=== PATIENT | male | born 1955 | race Caucasian/White ===

== ENCOUNTER → 2021-03-09 14:51 | Outpatient (CLI) | payer MEDICARE, BC, SELFPAY ==
--- NOTE | ~2021-03-09 | XR_ITS ---
XR chest 2V 03/09/2021 15:03 Indication: Cough. No fever. Procedure: 2 view chest Comparison: 10/06/2018 Findings: Bilateral perihilar interstitial infiltrates. Subsegmental atelectasis left midlung. No ple ural effusion or pneumothorax. No acute osseous abnormality. Impression: 1: Subtle bilateral perihilar interstitial infiltrates, suspicious for pneumonia. Reviewed, dictated and finalized at location B. Impression: 1: Subtle bilateral perihilar interstitial infiltrates, suspicious for pneumoni a.
== END ==
PROVIDERS: PCP Family Medicine; Visit Provider Nurse Practitioner Family
DX: R05 Cough (principal); R91.8 Other nonspecific abnormal finding of lung field
CPT/HCPCS: 71046

== ENCOUNTER → 2021-03-29 13:04 | Outpatient (CLI) | payer MEDICARE, BC, SELFPAY ==
--- NOTE | ~2021-03-29 | XR_ITS ---
EXAMINATION: XR chest 2V DATE: 03/29/2021 13:32 INDICATION: Pneumonia, unspecified organism. TECHNIQUE: Frontal and lateral views of the chest were obtained. COMPARISON: Chest 2 views 03/09/2021 FINDINGS: The chest demonstrates clear lungs without pneumonia, pleural effusion, or pneumothorax. Th e heart size is normal. IMPRESSION: 1. No acute cardiopulmonary disease. Reviewed, dictated and finalized at location A.
== END ==
PROVIDERS: PCP Family Medicine; Visit Provider Nurse Practitioner Family
DX: J18.9 Pneumonia, unspecified organism (principal)
CPT/HCPCS: 71046

== ENCOUNTER 2023-01-29 14:02 | Outpatient (CLI) | payer MEDICARE, SELFPAY ==
--- NOTE | 2023-01-29 15:17 | ECG_ITS ---
Measurements Intervals [place] Rate: 64 P: -5 SD: 165 QRS: -9 QRSD: 74 T: -12 QT: 386 QTc: 400 Interpretive Statements SINUS RHYTHM DELAYED PRECORDIAL R/S TRANSITION LEFT VENTRICULAR HYPERTROPHY BORDERLINE T WAVE ABNORMALITY- INFERIOR LEADS BORDERLINE ECG NO PREVIOUS ECG AVAILABLE FOR COMPARISON Electronically Signed On 01-29-2023 16:31:12 CDT by Neftaly Christy D.O.
[2023-01-29 15:49] LABS: Basophils Percent Auto 0.7 % (0.2-1.2); Eosinophils Absolute Auto 0.1 K/mm3 (0-0.3); Eosinophils Percent Auto 1.8 % (0-4.4); Hematocrit 41.2 % (42.0-52.0); Hemoglobin 14.2 g/dL (14.0-18.0); Immature Granulocyte Absolute 0.01 K/mm3 (0.00-0.031); Immature Granulocyte Percent A 0.2 % (0-0.5); Lymphocytes Absolute Auto 1.28 K/mm3 (0.9-3.2); Lymphocytes Percent Auto 28.8 % (18.3-44.2); Mean Corpuscular HGB Conc 34.5 g/dl (32-36); Mean Corpuscular Hemoglobin 30.5 pg (26-34); Mean Corpuscular Volume 88.6 fl (80-100); Mean Platelet Volume 9.9 fl (7.4-10.4); Monocytes Absolute Auto 0.5 K/mm3 (0.1-0.6); Monocytes Percent Auto 11.7 % (2.6-8.5); Neutrophils Absolute Auto 2.5 K/mm3 (1.3-6.7); Neutrophils Percent Auto 56.8 % (45.5-73.1); Platelet Count Result 205 k/mm3 (150-375); Red Blood Count 4.65 M/mm3 (4.6-6.20); Red Cell Distribution Width 13.4 % (11.5-14.5); White Blood Count 4.5 K/mm3 (4.5-10.0)
[2023-01-29 15:55] LABS: Albumin Level 4.7 g/dL (3.5-5.1); Anion Gap 6 mmol/L (8-16); Blood Urea Nitrogen 19 mg/dL (9-20); Calcium 9.1 mg/dL (8.4-10.2); Carbon Dioxide 29 mmol/L (22-30); Chloride 104 mmol/L (98-107); Estimated Glomerular Filt Rate > 60; Glucose 94 mg/dL (65-110); Potassium 4.6 mmol/L (3.4-5.0); Sodium 139 mmol/L (137-145)
[2023-01-29 16:19] LABS: Urine Cotinine NEGATIVE
[2023-01-29 16:30] LABS: Hemoglobin A1C 5.4 % (<5.7)
== END 2023-01-29 14:03 | disposition home or self-care (01) ==
LOC: ANHSURGERY 14:11
PROVIDERS: PCP Family Medicine; Visit Provider Orthopaedic Surgery
DX: Z01.818 Encounter for other preprocedural examination (principal); M17.11 Unilateral primary osteoarthritis, right knee
CPT/HCPCS: 80048; 80307; 82040; 83036; 85025; 87081; 93005

== ENCOUNTER 2023-02-27 00:43 | Day surgery (SDC) | payer MEDICARE, SELFPAY ==
[2023-01-29 14:30] VITALS: BP 146/86; PULSE 78; RESP 16; TEMP 36.6; O2SAT 96; BMI 28.3
--- NOTE | 2023-01-29 14:49 | PC.NURSE ---
Report to the Outpatient Waiting Room, entrance under the green pavilion located off [facility], at time _10:00AM on date __02/27/23 . Planned Procedure Time: __12:00PM . Time changes happen often and if your time is changed the preop area will call you the afternoon before. - You and your visitor will be asked to self-screen and do not enter if you have any COVID symptoms. - Only one visitor is requested with a max of two and NO children visitors are allowed at this time. - The patient visitor may be requested to leave or wait in car when not with patient due to distancing restrictions. - A mask is optional within the hospital at this time. Patients may have clear liquids (water, carbonated beverages, clear teas, apple juice) until 3 hours prior to surgery with a maximum of 20 ounces. - No food from midnight until time of surgery Take the following medications with a SIP of water the morning of surgery: ____NONE DO NOT STOP ANY OF YOUR OTHER PRESCRIPTION MEDICATIONS PRIOR TO SURGERY ?EXCEPT THE FOLLOWING Medications to discontinue per physician HOLD ALL VITAMINS/SUPPLEMENTS AND NSAIDS(IBUPROFEN) 7 DAYS PRE-OP PER DR JHAVERI(PER PATIENT) Date to take last dose____02/20/23 Please no make-up, nail south african, hairspray, perfume, deodorant, or body powder the day of surgery. No jewelry (including any body piercings) or valuables the day of surgery, leave them at home. Please take a shower or bath the night before, or the morning of, surgery with an antibacterial soap. Wear comfortable, loose fitting clothing. Children are encouraged to wear pajamas. - Jewelry must be removed prior to entering the operating room. Rings and piercings that are not removed may be cut off. - The hospital will not accept responsibility for valuables. - Please leave all valuables, including medications, at home the day of surgery. If you are going home after surgery, a licensed fast food delivery driver must drive you home. - NO public transportation without another adult if you receive anesthesia. - We recommend that an adult stay with you for 24 hours following discharge. - We also recommend that you do not drive, make important decision, drink alcoholic beverages, or take any drugs that were not prescribed by your health care provider for at least 24 hours after your discharge time. Follow any additional instructions given to you from your surgeon. If you or anyone in your household have experienced Covid symptoms in the past week, please notify your surgeon or the nurse liaison at the phone number below for possible testing. Telephone instructions given to __PATIENT and asked if any additional questions and then verbalized understanding. Patient advised to call surgeon office or pre surgery nurse liaison [phone] if any additional questions.
--- NOTE | 2023-02-25 11:55 | PM.IMHP ---
H&P: HPI History of Present Illness Date/Time: 02/25/23 11:55 Chief Complaint: right knee DJD Narrative: 67-year-old male patient of Dr. Bowman who presents today for a right total knee arthroplasty. Patient has been having pain in this knee for years. He has advanced medial compartment osteoarthritis with a rather significant varus deformity and limited range of motion. He has been taking ibuprofen without improvement of his symptoms. He had a cortisone injection in October of last year without improvement of his symptoms. Patient feels at this point he is ready to proceed with total knee arthroplasty rather continue nonsurgical treatment Review of Systems Review of Systems: All systems reviewed & are unremarkable except as noted in HPI and below PMFSH Past Medical History Medical History BMI 26.0-26.9,adult Family History Family History Father No problems noted. Mother Breast cancer UTI (urinary tract infection) Sibling No problems noted. 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 Spiritual care concerns: No Meds Home Medications and Allergies Home Medications Medication Instructions Recorded Confirmed Type finasteride 5 mg tablet (Proscar) 5 mg PO HS 01/29/23 01/29/23 History ginkgo biloba 120 mg tablet 120 mg PO DAILY 01/29/23 01/29/23 History ibuprofen 200 mg capsule 600 - 800 mg PO Q6H PRN Pain 01/29/23 01/29/23 History lecithin 1,200 mg capsule 1,200 mg PO DAILY 01/29/23 01/29/23 History multivitamin 1 tablet PO DAILY 01/29/23 01/29/23 History saw palmetto 450 mg capsule 900 mg PO DAILY 01/29/23 01/29/23 History triamcinolone acetonide 0.5 % 1 applic topical BID PRN Rash 01/29/23 01/29/23 History topical cream vitamin D3 25 mcg-vitamin K2 20 2 cap PO DAILY 01/29/23 01/29/23 History mcg-olive leaf extract 250 mg capsule Allergies Allergy/AdvReac Type Severity Reaction Status Date / Time ciprofloxacin AdvReac Unknown anger Verified 02/11/23 08:35 Exam Narrative: 67-year-old male he is 5 ft 8 186 lb. His right knee range of motion is from 10-85 degrees. He has a prominent supra patellar mass which is a collection of ossified loose bodies. Mild effusion in the knee. Fixed varus deformity. Full range motion of the hip without discomfort. Normal quad strength. 2+ dorsalis pedis and posterior artery pulse palpable. Skin is all normal. There is no edema or numbness in the right lower extremity. Resp: Auscultation: clear to auscultation bilaterally Cardio: Rate: regular rate Rhythm: regular rhythm Assessment and Plan Assessment and plan (1) Right knee DJD: Code(s): M17.11 - Unilateral primary osteoarthritis, right knee Status: Acute Plan 67-year-old male who has advanced medial compartment osteoarthritis in the right knee with significant decreased range of motion and pain. Again patient feels this point is very proceed with total knee arthroplasty. He will see his primary care doctor for pre-surgical clearance. Surgical procedure as well as the risks and complications were discussed in detail questions were answered and we will proceed. Patient will avoid his ibuprofen and any other aspirin products 1 week prior to surgery. His nasal swab was negative. Chem panel is all within normal
[2023-02-27] VITALS (11 sets, daily range): BP systolic 134–152; BP diastolic 85–99; PULSE 76–101; RESP 12–20; TEMP 36.2–37; O2SAT 96–98
--- NOTE | ~2023-02-27 | XR_ITS ---
EXAMINATION: [id number] DATE: 02/27/2023 16:10 CDT INDICATION: Right total knee arthroplasty TECHNIQUE: 2 views right knee FINDINGS: There is a right total knee arthroplasty in expected position. Subcutaneous gas with fluid and air in the joint are consistent with recent surgery. No evidence of periprosthetic fracture. IMPRESSION: 1. Recent right total knee arthroplasty. Reviewed, dictated and finalized at location A.
--- NOTE | 2023-02-27 09:04 | WPDANESEPPF ---
Anes - Initial Pre Proc Eval Procedure: Operation Date: 02/27/23 12:00 Proposed Procedures p Right Total Knee Arthroplasty - Gigi Harden MD Date/Time: 02/27/23 09:04 Surgeon: Gigi Harden MD Pre Op Diagnosis: oa right knee Patient Data Age: 67 Gender: M Height: 1.75 m Weight: 86.9 kg Last Vital Signs Temp 36.6 C 01/29/23 14:30 Pulse 78 01/29/23 14:30 Resp 16 01/29/23 14:30 BP 146/86 H 01/29/23 14:30 Pulse Ox 96 01/29/23 14:30 O2 Del Method Room Air 01/29/23 14:30 Allergies Allergy/AdvReac Type Severity Reaction Status Date / Time ciprofloxacin AdvReac Unknown anger Verified 02/27/23 11:02 Home Medications Medication Instructions Recorded Confirmed Type lecithin 1,200 mg capsule 1,200 mg PO DAILY 01/29/23 02/27/23 History multivitamin 1 tablet PO DAILY 01/29/23 02/27/23 History acetaminophen 500 mg tablet 1,000 mg PO Q6HR #90 tabs 02/28/23 Rx apixaban 2.5 mg tablet (Eliquis) 2.5 mg PO Q12HR #28 tabs 02/28/23 Rx celecoxib 200 mg capsule (Celebrex) 200 mg PO DAILY@0800 #60 caps 02/28/23 Rx cephalexin 500 mg capsule 500 mg PO Q6HR #56 caps 02/28/23 Rx oxycodone 5 mg tablet 5 mg PO Q4HR #40 tabs 02/28/23 Rx polyethylene glycol 3350 17 gram 17 g PO QAM #30 ea 02/28/23 Rx oral powder packet (Miralax) sennosides 8.6 mg-docusate sodium 2 tab PO BID #60 tabs 02/28/23 Rx 50 mg tablet (Senokot-S) finasteride 5 mg tablet (Proscar) 5 mg PO HS #90 tabs 03/07/23 Rx Patient hx anesthesia problems: none Family hx anesthesia problems: none Results Review: All pre-operative results and documents have been reviewed as part of the pre-operative evaluation. [facility] Past Medical History Medical History (Updated 02/27/23 @ 23:21 by Farnaz Adam PA-C) Benign prostatic hyperplasia Hypothyroidism Has not required medications since he was a child. Mixed hyperlipidemia Numbers elevated though not enough to start medication, per patient report. Surgical History Surgical History (Updated 02/27/23 @ 22:44 by Farnaz Adam PA-C) History of arthroplasty of right knee (02/27/23) Per Dr. Harden. History of tonsillectomy Family History Family History Father No problems noted. Mother Breast cancer UTI (urinary tract infection) Sibling No problems noted. Social History Social History (Updated 02/27/23 @ 23:21 by Farnaz Adam PA-C) Social History: Surrogate medical decision maker: Serena Malachi, spouse. Code status: Full code. Smoking packs per day: 0.5 Smoking cigarettes per day: 10.0 Years smoked: 1 Smoking pack-years: 0.50 Smoking status: Former smoker Tobacco type: cigarettes Second hand tobacco smoke exposure: Yes Smoking end date: 05/11/77 Alcohol intake: current Drinks per week: 3 Substance use: never Substance use type: does not use Lack of Transportation: No Lack of Food: Never True Current Housing: I Have Housing Concerned About Future Housing: No Difficulty Paying Gas/Electric Bills: No Difficulty Paying for Meds: No Currently Unemployed: No Education: Decline to Answer Difficulty w/ Childcare or Family Care: No Living arrangements: with family Additional living arrangements comments: Lives with spouse in [place]. Enjoys playing hockey. 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 Spiritual care concerns: No Anes - Eval Final PreProcedure Day of Procedure 02/27/23 09:04 Patient weight: overweight Heart: regular rate and rhythm Lungs: clear to auscultation Airway: Mallampati scale class II Neurological: alert and oriented Last oral intake: >/= 8 hours ASA classification: II Emergent: no Anesthetic plan: proceed Anesthesia type and monitoring: general ETT and standard monitoring Results Review: All pre-operative results and documents have been review
[2023-02-27] MEDS: LACTATED RINGERS 1,000 ML 30 ML IV CONT (11:05)
[2023-02-27] MEDS: TRANEXAMIC ACID 1,000MG/ISO100 1,000 MG/100 ML BAG 200 MG IVPB (11:08)
[2023-02-27] MEDS: ACETAMINOPHEN 500 MG TABLET 1000 MG PO ×3 (11:08→23:03)
--- NOTE | 2023-02-27 11:48 | WPDANESEPPF ---
Anes - Initial Pre Proc Eval Procedure: Operation Date: 02/27/23 12:00 Proposed Procedures p Right Total Knee Arthroplasty - Gigi Harden MD Date/Time: 02/27/23 11:48 Surgeon: Gigi Harden MD Pre Op Diagnosis: oa right knee Patient Data Age: 67 Gender: M Height: 1.75 m Weight: 81.8 kg Last Vital Signs Temp 98.0 F 02/27/23 10:09 Pulse 76 02/27/23 10:09 Resp 18 02/27/23 10:09 BP 134/92 H 02/27/23 10:09 Pulse Ox 98 02/27/23 10:09 O2 Del Method Room Air 02/27/23 10:09 Allergies Allergy/AdvReac Type Severity Reaction Status Date / Time ciprofloxacin AdvReac Unknown anger Verified 02/27/23 11:02 Home Medications Medication Instructions Recorded Confirmed Type finasteride 5 mg tablet (Proscar) 5 mg PO HS 01/29/23 02/27/23 History ginkgo biloba 120 mg tablet 120 mg PO DAILY 01/29/23 02/27/23 History ibuprofen 200 mg capsule 600 - 800 mg PO Q6H PRN Pain 01/29/23 02/27/23 History lecithin 1,200 mg capsule 1,200 mg PO DAILY 01/29/23 02/27/23 History multivitamin 1 tablet PO DAILY 01/29/23 02/27/23 History saw palmetto 450 mg capsule 900 mg PO DAILY 01/29/23 02/27/23 History triamcinolone acetonide 0.5 % 1 applic topical BID PRN Rash 01/29/23 01/29/23 History topical cream vitamin D3 25 mcg-vitamin K2 20 2 cap PO DAILY 01/29/23 02/27/23 History mcg-olive leaf extract 250 mg capsule Patient hx anesthesia problems: none Family hx anesthesia problems: none Results Review: All pre-operative results and documents have been reviewed as part of the pre-operative evaluation. [facility] Past Medical History Medical History (Updated 02/27/23 @ 09:05 by Trino Escudero DO) Benign prostatic hyperplasia without lower urinary tract symptoms Mixed hyperlipidemia Family History Family History Father No problems noted. Mother Breast cancer UTI (urinary tract infection) Sibling No problems noted. 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 Informed Consent: The patient's anesthetic plan and its attendant risks and benefits were discussed with the patient/family/POA. Questions were solicited and answers provided to the satisfaction of the patient/family/POA.
--- NOTE | 2023-02-27 11:51 | WPDHPUPDATE1 ---
History and Physical Update Update Date/Time: 02/27/23 11:51 History and Physical has been reviewed, including an updated exam of the patient. There are NO changes in the patient's condition. Risks, benefits, and alternatives have been discussed and questions answered. Patient agrees to proceed with procedure.
[2023-02-27] MEDS: ceFAZolin 2 GM/D5W 50 ML 2 GM/50 ML BAG IVPB (12:03)
[2023-02-27] MEDS: ceFAZolin SODIUM 1 GM VIAL 3 GM (12:59)
[2023-02-27] MEDS: TRANEXAMIC ACID 1,000 MG/10 ML AMPUL 1000 MG IV PUSH (14:37)
[2023-02-27] MEDS: ceFAZolin SODIUM 1 GM VIAL IV PUSH (14:37)
[2023-02-27] MEDS: KETOROLAC 15 MG/ML VIAL (*BKC) IV PUSH ×2 (14:37→20:51)
--- NOTE | 2023-02-27 15:35 | W.PM.PROC2 ---
Procedure Note - Detailed Date of Procedure 02/27/23 Pre-op Diagnosis oa right knee and left knee Post-op Diagnosis Same Procedure Performed Cortisone injection left knee, right total knee arthroplasty Surgeon Gigi Harden MD [employer] Feliz Farrell Anesthesia General Description of Procedure Patient was brought to the operating room and general anesthesia was administered. He received 2 g Ancef 1 g tranexamic acid weight based vancomycin preoperatively. The left knee was prepped with Betadine and 80 mg of Depo-Medrol 3 cc 1% lidocaine injected into the left knee without difficulty. The right knee was prepped draped usual fashion. Limb was exsanguinated tourniquet elevated to 250 mmHg. A 7 in longitudinal midline incision was used and a standard parapatellar arthrotomy utilized. The soon as we entered the knee we identified and removed 19 rather large ostial chondral loose bodies. We carefully search the gutters and the suprapatellar pouch for any additional loose bodies to live was confident we had removed a mole. Suprapatellar synovectomy was performed. This mobilized the quadriceps which was somewhat scarred down. Infrapatellar and suprapatellar fat pads were excised a quadriceps synovectomy carried out. The patella had mild chondromalacia and after removal of osteophytes I felt it was very suitable for non resurfacing. A is minor lateral facetectomy was performed. The guide kathy was inserted on the femoral canal after aspiration of canal contents using the 5 degree valgus cutting bushing 9 mm of bone removed the distal femur. This removed 9 mm from lateral side but only about 7 mm from the medial side because of wear. Next the tibial plateau was cut. We tried to make a skim cut off the low point of the medial tibial plateau on the 1st cut we did not quite reach the bottom of the posteromedial tibial defect. We removed an additional 2 mm of bone the cut just under the defect. Bone quality was excellent. Meniscus remnants were removed and PCL recessed. Flexion gap medially was 10 mm in laterally 14 mm. The sizing guide was set at 5? external rotation referenced off posterior femoral condyles and this matched Whitesides line. Posterior referencing pinholes were placed. The size 67.5 vanguard cutting block was applied which gave us a nice fit anterior to posterior and medial to lateral. The tibial plateau was sized to a 75 placed at proper rotation and punched. On trialing the 12 mm insert gave us the appropriate anterior posterior stability at 90? with 1 mm medial lateral opening. It was too tight in extension lacked about 5? but there was play laterally to varus stress. We removed posteromedial tibial osteophyte and released posterior central capsule as he did have a significant flexion contracture preoperatively. This brought the knee to just full extension with a negative bounce test but no play medially valgus stress and seemed to be just a little bit tight there. I felt this was just a little bit too tight for extension elected to remove an additional mm of bone from the distal femur for the medial femoral condyle placed in the distal femoral cut at 4? instead of 5. We revised the chamfer cuts and on read trialing now the knee came out to full extension with negative bounce 1 mm medial opening 3 mm lateral opening in extension. Lug holes were drilled for the femoral component step drill was used to make numerous perforations the 2 plateau and distal femur as his bone quality was excellent. The bony surfaces were thoroughly irrigated and dried. Using 2 batches of methylmethacrylate 1 with gentamicin powder the cement was immediately applied to the 75 tibial component and then the 67.5 CR right femoral component. Cement applied the tibia pressurized tibial component fully seated cement applied to the femur the femoral component fully seated the knee brought into extension with a 13 mm 5 and 1 insert for cement pressurization mike
--- NOTE | 2023-02-27 15:49 | WPDHPUPDATE1 ---
History and Physical Update Update Date/Time: 02/27/23 15:49 History and Physical has been reviewed, including an updated exam of the patient. There are NO changes in the patient's condition. Risks, benefits, and alternatives have been discussed and questions answered. Patient agrees to proceed with procedure. Patient did report that his left knee was bothering him more and he asked about a cortisone shot the left knee we offered to give this to him in the operating room while he was asleep and he wished to try that. Risks of injection were discussed. He has osteoarthritis medial compartment severe in the left knee as well.
[2023-02-27] MEDS: fentaNYL CITRATE INJ (*CRX) 100 MCG/2 ML VIAL 25 MCG IV PUSH ×4 (16:10→16:35)
--- NOTE | 2023-02-27 16:51 | ADMGEN ---
This patient, Evens Ly, was admitted to Medical Room 345-01. Patient/family oriented to hospital policies and general routines including ID bracelet, bed and alarms, visiting hours, pain management, procedures, bathroom and other care routines, personal items, smoking policy, room service/diet, and visiting hours. Information on how to activate the Rapid Response Team has been discussed. Patient/Family are encouraged to report perceived risks to care and to ask questions if they do not understand what they are told or what they should do.
[2023-02-27] MEDS: SENNA/DOCUSATE SODIUM TABLET 2 TAB PO (17:35)
[2023-02-27] MEDS: oxyCODONE HCL (*CRX) 5 MG TAB IR PO ×2 (17:38→20:51)
[2023-02-27] MEDS: ceFAZolin 1 GM/NS 50 ML 1 GM/50 ML BAG IVPB (20:08)
[2023-02-27] MEDS: FINASTERIDE 5 MG TABLET PO (20:51)
--- NOTE | 2023-02-27 22:40 | WPDCN ---
Assessment and Plan Assessment and plan (1) Arthritis of both knees: Code(s): M17.0 - Bilateral primary osteoarthritis of knee Status: Acute Assessment and Plan: Postoperative day 0 status post right total knee arthroplasty and cortisone injection of left knee. Wound care, pain control, and DVT prophylaxis deferred to primary service. Check baseline labs in a.m. Agree with PT/OT. (2) Benign prostatic hyperplasia: Code(s): N40.0 - Benign prostatic hyperplasia without lower urinary tract symptoms Status: Acute Assessment and Plan: Watch for urinary retention postoperatively. Continue finasteride and saw palmetto on discharge. (3) Elevated blood pressure reading: Code(s): R03.0 - Elevated blood-pressure reading, without diagnosis of hypertension Status: Acute Assessment and Plan: Blood pressures have been elevated postoperatively, likely due to discomfort however patient states his blood pressures more recently have been creeping up though not high enough to start medications. Continue to trend for now. Plan Thank you for allowing us to participate in this patient's care. Please do not hesitate to contact us with any questions. HPI Data of Consult Date/Time: 02/27/23 22:40 Requesting Physician: Gigi Harden MD Consult Narrative Reason for consult: Medical management. Narrative: This is a very pleasant 67-year-old male with benign prostatic hyperplasia and arthritis of both knees whom the hospitalist service has been consulted for help managing his medical conditions postoperatively. He has had longstanding pain in his both knees, the right especially, and unfortunately conservative measures have not provided him with longstanding relief. He elected for replacement of that right knee today; he also had a cortisone injection of the left knee at the same time. Surgery was performed under general anesthesia with no immediate complications documented. Postoperatively he has been doing quite well and his pain is controlled. His blood pressures have been running a bit high however he states that recently they have been creeping up but not high enough to be started on medication as of yet. He denies postoperative fever, chills, sweats, nausea, vomiting, chest pain, shortness breath. He also denies paresthesias, skin color, and temperature changes distal to the surgical site. Upon discharge he will return home and his will be helping take care of him. Review of Systems Review of Systems: Twelve systems were reviewed. No recent cold or flu symptoms. He had hypothyroidism as a child but has not been on any medications for that for decades. No personal or family history of venous thromboembolism. He has not had any difficulties urinating postoperatively. Except as documented, all other systems were reviewed and are negative. [facility] Past Medical History Medical History (Updated 02/27/23 @ 23:21 by Fanraz Adam PA-C) Benign prostatic hyperplasia Hypothyroidism Has not required medications since he was a child. Mixed hyperlipidemia Numbers elevated though not enough to start medication, per patient report. Surgical History Surgical History (Updated 02/27/23 @ 22:44 by Farnaz Adam PA-C) History of arthroplasty of right knee (02/27/23) Per Dr. Harden. History of tonsillectomy Family History Family History Father No problems noted. Mother Breast cancer UTI (urinary tract infection) Sibling No problems noted. Social History Social History (Updated 02/27/23 @ 23:21 by Farnaz Adam PA-C) Social History: Surrogate medical decision maker: Serena Ly, spouse. Code status: Full code. Smoking packs per day: 0.5 Smoking cigarettes per day: 10.0 Years smoked: 1 Smoking pack-years: 0.50 Smoking status: Former smoker Tobacco type: cigarettes Second arevalo
[2023-02-28] MEDS: oxyCODONE HCL (*CRX) 5 MG TAB IR PO ×3 (00:01→09:20)
[2023-02-28 00:30] VITALS: BP 132/79; PULSE 99; RESP 18; TEMP 36.1; O2SAT 98
[2023-02-28] MEDS: ceFAZolin 1 GM/NS 50 ML 1 GM/50 ML BAG IVPB (04:38)
[2023-02-28 04:40] VITALS: BP 118/71; PULSE 103; RESP 16; TEMP 36.6; O2SAT 98
[2023-02-28] MEDS: ACETAMINOPHEN 500 MG TABLET 1000 MG PO ×2 (05:07→11:16)
[2023-02-28 05:45] LABS: Basophils Percent Auto 0.1 % (0.2-1.2); Hemoglobin 12.3 g/dL (14.0-18.0); Immature Granulocyte Absolute 0.12 K/mm3 (0.00-0.031); Lymphocytes Absolute Auto 0.57 K/mm3 (0.9-3.2); Lymphocytes Percent Auto 4.6 % (18.3-44.2); Mean Corpuscular HGB Conc 34.2 g/dl (32-36); Mean Corpuscular Volume 90.7 fl (80-100); Mean Platelet Volume 10.3 fl (7.4-10.4); Monocytes Absolute Auto 0.9 K/mm3 (0.1-0.6); Monocytes Percent Auto 7.2 % (2.6-8.5); Neutrophils Absolute Auto 10.7 K/mm3 (1.3-6.7); Neutrophils Percent Auto 87.1 % (45.5-73.1); Platelet Count Result 213 k/mm3 (150-375); Red Blood Count 3.97 M/mm3 (4.6-6.20); Red Cell Distribution Width 13.4 % (11.5-14.5); White Blood Count 12.3 K/mm3 (4.5-10.0)
[2023-02-28 05:50] LABS: Anion Gap 8 mmol/L (8-16); Blood Urea Nitrogen 18 mg/dL (9-20); Calcium 8.7 mg/dL (8.4-10.2); Carbon Dioxide 26 mmol/L (22-30); Chloride 101 mmol/L (98-107); Estimated CRCL calculation 62 ml/min; Estimated Glomerular Filt Rate > 60; Glucose 258 mg/dL (65-110); Magnesium 1.9 mg/dL (1.6-2.3); Potassium 4.3 mmol/L (3.4-5.0); Sodium 135 mmol/L (137-145)
--- NOTE | 2023-02-28 07:32 | PM.PNORT ---
Subjective Subjective Date/Time Seen: 02/28/23 07:32 postop day 1 patient is alert. He is afebrile vital signs are stable. His dressing is dry and intact. Neurovascularly is intact. He has been up multiple times to the restroom overnight. Pain overall is very well controlled. He has minimal swelling in the knee. Morning labs are noted. Overall patient is doing very well. The plan will be to have patient work with therapy this morning as well as this afternoon. Once IV antibiotics have been completed we will have the patient discharged home this afternoon. Objective Data Vital Signs Vital Signs: Vital Signs - 24 hr 02/27/23 10:09 02/27/23 15:51 02/27/23 16:07 Temperature 36.7 C 37.0 C Pulse Rate 76 100 101 H Respiratory Rate 18 12 20 Blood Pressure 134/92 H 152/98 H 147/96 H Pulse Oximetry 98 97 97 Oxygen Delivery Room Air Simple Face Mask Simple Face Mask Oxygen Flow Rate 8 6 02/27/23 16:25 02/27/23 16:39 02/27/23 17:00 Temperature 36.8 C Pulse Rate 98 94 90 Respiratory Rate 20 18 16 Blood Pressure 134/85 138/91 H 149/97 H Pulse Oximetry 98 98 98 Oxygen Delivery Nasal Cannula Nasal Cannula Oxygen Flow Rate 2 2 02/27/23 17:15 02/27/23 17:44 02/27/23 17:45 Temperature 36.9 C 36.8 C Pulse Rate 90 90 100 Respiratory Rate 16 16 18 Blood Pressure 148/99 H 148/86 H Pulse Oximetry 98 98 98 Oxygen Delivery Nasal Cannula Oxygen Flow Rate 2 02/27/23 21:08 02/27/23 20:00 02/28/23 00:30 Temperature 36.2 C L 36.1 C L Pulse Rate 100 100 99 Respiratory Rate 18 18 18 Blood Pressure 141/87 H 132/79 Pulse Oximetry 96 96 98 Oxygen Delivery Room Air Oxygen Flow Rate 02/28/23 04:40 Temperature 36.6 C Pulse Rate 103 H Respiratory Rate 16 Blood Pressure 118/71 Pulse Oximetry 98 Oxygen Delivery Oxygen Flow Rate Intake/Output Intake/Output: Intake & Output 02/25/23 02/26/23 02/27/23 02/28/23 23:59 23:59 23:59 23:59 Intake Total 1390 700 Balance 1390 700 Meds/Results Medications: Active Medications Generic Name Dose Route Start Last Admin Trade Name Freq PRN Reason Stop Dose Admin Acetaminophen 1,000 mg 02/27/23 18:00 02/28/23 05:07 Acetaminophen 500 Mg Tablet PO 1,000 mg Q6HR MADHAVI Administration Apixaban 2.5 mg 02/28/23 09:00 Apixaban 2.5 Mg Tablet PO Q12HR [facility] Celecoxib 200 mg 02/28/23 08:00 Celecoxib 200 Mg Capsule PO DAILY@0800 [facility] Cephalexin HCl 500 mg 02/28/23 06:00 Cephalexin 500 Mg Capsule PO Q6HR [facility] Finasteride 5 mg 02/27/23 21:00 02/27/23 20:51 Finasteride 5 Mg Tablet PO 5 mg HS MADHAVI Administration Vancomycin HCl 1,000 mg in 250 mls @ 250 mls/hr 02/27/23 23:00 02/28/23 00:21 Vancomycin 1,000 Mg/D5w 250 Ml IVPB 02/28/23 11:59 Infused Q12H [facility] Infusion Morphine Sulfate 2 mg 02/27/23 15:50 Morphine Sulfate (*Crx) 2 Mg/Ml Inj IV PUSH Q1H PRN Pain Rated 7-10 Naloxone HCl 0.1 mg 02/27/23 15:50 Naloxone Hcl 0.4 Mg/Ml Vial IV PUSH Q2M PRN Opiate Reversal Oxycodone HCl 5 mg 02/27/23 17:00 02/28/23 04:38 Oxycodone Hcl (*Crx) 5 Mg Tab Ir PO 5 mg Q4HR MADHAVI Administration Oxycodone HCl 5 mg 02/27/23 15:50 Oxycodone Hcl (*Crx) 5 Mg Tab Ir PO Q4H PRN Pain Rated 4-10 Polyethylene Glycol 17 gm 02/28/23 09:00 Polyethylene Glycol 3350 17 Gm Powd.Pack PO QAM MADHAVI Senna/Docusate Sodium 2 tab 02/27/23 17:00 02/27/23 17:35 Senna/Docusate Sodium Tablet PO 2 tab BID MADHAVI Administration Triamcinolone Acetonide 1 applic 02/27/23 16:42 Triamcinolone Acet 0.5% Cream 15 Gm Tube TOPICAL BID PRN Rash Radiology Results: ITS Impressions Knee X-Ray 02/27/23 16:10 IMPRESSION: 1. Recent right total knee arthroplasty. Labs Labs: Laboratory Results - last 24 hr 02/27/23 02/28/23 02/28/23 10:56 05:26 05:26 WBC 12.3 H RBC 3.97 L Hgb 12.3 L Hct 36.0 L MCV 90.7
--- NOTE | 2023-02-28 07:36 | PM.DS ---
DS: Admitting Diagnosis Discharge Date 02/28 Admitting Diagnosis Right knee DJD DS: Discharge Diagnosis Discharge Diagnosis (1) Arthritis of both knees: Code(s): M17.0 - Bilateral primary osteoarthritis of knee Status: Acute DS: Summary Hospital Course Hospital Course: 67-year-old male underwent right total knee arthroplasty on 02/27. Underwent procedure without complications. Postoperatively he has been afebrile vital signs are stable. Neurovascularly he is intact. His dressing is dry intact. Patient was up to the restroom multiple times a day of surgery and was comfortable. Pain overall is very well controlled he is on scheduled Tylenol as well as oxycodone 5 mg. He is on Celebrex 200 mg daily. He can be discharged home on 02/28. He has outpatient therapy starting next Saturday. Patient was advised to keep leg elevated home to prevent swelling in the knee. He is to do his exercises of bending and straightening the knee every hour while awake. He is on Eliquis for DVT prophylaxis. He will also go home on a 2 week course of Keflex as well as Senokot MiraLax for constipation. Patient was advised any questions or concerns he is to call the office otherwise we will see him at his appointed dates. Time Spent with Patient Time attestation: Total time spent providing and/or coordinating discharge services: DS: Data Data Completed and Pending Labs on day of discharge: Labs from last 24 hours 02/28/23 02/28/23 02/27/23 05:26 05:26 10:56 WBC 12.3 H RBC 3.97 L Hgb 12.3 L Hct 36.0 L MCV 90.7 MCH 31.0 MCHC 34.2 RDW 13.4 Plt Count 213 MPV 10.3 Immature Gran % (Auto) 1.0 H Neut % (Auto) 87.1 H Lymph % (Auto) 4.6 L [place] % (Auto) 7.2 Eos % (Auto) 0.0 Baso % (Auto) 0.1 L Lymph # (Auto) 0.57 L [place] # (Auto) 0.9 H Eos # (Auto) 0.0 Baso # (Auto) 0.0 Abs Immat Gran (auto) 0.12 H Absolute Neuts (auto) 10.7 H Absolute Nucleated RBC 0.0 Nucleated RBC % 0.0 Sodium 135 L Potassium 4.3 Chloride 101 Carbon Dioxide 26 Anion Gap 8 BUN 18 Creatinine 1.00 Estim Creat Clear Calc 62 Estimated GFR > 60 Glucose 258 H Calcium 8.7 Magnesium 1.9 Blood Type B Positive Antibody Screen Negative Discharge Plan Discharge Patient Disposition: Home, Self-Care Discharge Instructions: JASS JHAVERI M.D [facility], [facility] [address] [place] [address] POST-OPERATIVE DISCHARGE INSTRUCTIONS TOTAL KNEE ARTHROPLASTY 1. When resting, lie on back with leg elevated above heart to minimize swelling. Significant swelling could indicate a blood clot and if this occurs call the office (or go to the ER) to have a venous ultrasound. 2. Do exercise 5 times a day. 3. Do not sit with leg down except for meals. 4. Wound Care: Nursing will give additional dressings at discharge. Patient to change dressing at home 1 week from surgery, then maintain until seen in office. 5. May shower with dressing in place. 6. Follow weight bearing status instructions. IMPORTANT: Remember not to sit in the chair for more than 30 minutes at a time. As a rule, during the first 14 days after surgery, only sit in the chair to work on the chair knee bending stretch exercise, for meals or for use of the restroom. Sitting in the chair promotes significant swelling in the knee and leg which will make the knee stiff and more painful and which simulates having a blood clot in the veins of the leg. If this type of significant diffuse swelling occurs, an ultrasound at the hospital will be necessary to rule out a blood clot. Be up walking around with the walker for a few minutes every hour while awake and then rest laying on your back on the couch or in bed with your leg elevated on cushions or pillows. Do not rest in the chair. Stand Alone Forms: General Discharge Instructions
--- NOTE | 2023-02-28 09:00 | PM.IMPN ---
Progress Note: A&P Assessment and Plan (1) Arthritis of both knees: Code(s): M17.0 - Bilateral primary osteoarthritis of knee Status: Acute Assessment and Plan: Postoperative day 0 status post right total knee arthroplasty and cortisone injection of left knee. Wound care, pain control, and DVT prophylaxis deferred to primary service. Baseline labs stable at this time PT/OT. (2) Benign prostatic hyperplasia: Code(s): N40.0 - Benign prostatic hyperplasia without lower urinary tract symptoms Status: Acute Assessment and Plan: Watch for urinary retention postoperatively. Continue finasteride and saw palmetto Trend urine output (3) Elevated blood pressure reading: Code(s): R03.0 - Elevated blood-pressure reading, without diagnosis of hypertension Status: Acute Assessment and Plan: BP stable at 118/71 Continue home medications as prescribed trend BP Time Spent With Patient Time: 37 minutes Time with patient: Greater than 35 minutes Subjective Date/time seen: 02/28/23 09:15 Interval history: 02/28/2315 Patient is doing well today. He is walking up and down the hallway. He denies any current complaints and states his pain is about a 2/10. Patient is stable for discharge for labs and vital signs on the hospitalist side. Glucose is a bit high today at 258. Could be from medications or fluids. A1c is stable at 5.4. Talked to patient about following up with primary care provider in about 3 months for repeat A1c. 02/27/23? 22:40 This is a very pleasant 67-year-old male with benign prostatic hyperplasia and arthritis of both knees whom the hospitalist service has been consulted for help managing his medical conditions postoperatively. He has had longstanding pain in his both knees, the right especially, and unfortunately conservative measures have not provided him with longstanding relief. He elected for replacement of that right knee today; he also had a cortisone injection of the left knee at the same time. Surgery was performed under general anesthesia with no immediate complications documented. Postoperatively he has been doing quite well and his pain is controlled. His blood pressures have been running a bit high however he states that recently they have been creeping up but not high enough to be started on medication as of yet. He denies postoperative fever, chills, sweats, nausea, vomiting, chest pain, shortness breath.? He also denies paresthesias, skin color, and temperature changes distal to the surgical site. Upon discharge he will return home and his will be helping take care of him. Review of Systems Review of Systems: All systems reviewed & are unremarkable except as noted in HPI and below Exam Narrative: General: well-nourished, well-appearing 67-year-old male, sitting up in bed, comfortable, NARD Neuro: awake, alert and oriented x4, speech clear, no focal neuro deficits noted HEENMT: normocephalic, atraumatic, EOMI, sclerae anicteric, moist oral mucosa Respiratory: Clear to auscultation bilaterally without crackles, rhonchi or wheezes, nonlabored breathing Cardio: regular rate, regular rhythm with S1-S2 Abdomen: nondistended, normoactive bowel sounds, soft, nontender to palpation Extremities: no edema, erythema, or tenderness to palpation, DP pulses 2+ bilaterally, right knee bandage dry clean and intact Skin: no rashes or lesions, warm and dry Psych: appropriate mood and affect, judgment and insight intact Objective Data Vital Signs Vital Signs: Vital Signs - 24 hr 02/27/23 10:09 02/27/23 15:51 02/27/23 16:07 Temperature 98.0 F 98.6 F Pulse Rate 76 100 101 H Respiratory Rate 18 12 20 Blood Pressure 134/92 H 152/98 H 147/96 H Pulse Oximetry 98 97 97 Oxygen Delivery Room Air Simple Face Mask Simple Face Mask Oxygen Flow Rate 8 6 02/27/23 16:25 02/27/23 16:39 02/27/23 17:00 Temperature 98.2 F Puls
[2023-02-28] MEDS: polyethylene glycoL 3350 17 GM POWD.PACK PO (09:20)
[2023-02-28] MEDS: CELECOXIB 200 MG CAPSULE PO (09:20)
[2023-02-28] MEDS: APIXABAN 2.5 MG TABLET PO (09:20)
[2023-02-28] MEDS: SENNA/DOCUSATE SODIUM TABLET 2 TAB PO (09:20)
[2023-02-28 09:40] VITALS: BP 142/75; PULSE 83; RESP 16; TEMP 36.4; O2SAT 98
[2023-02-28] MEDS: CEPHALEXIN 500 MG CAPSULE PO (11:15)
--- NOTE | 2023-02-28 11:20 | WPDANESPN ---
Anes - Prog Note Post-Op Date/Time: 02/28/23 11:20 Cardiovascular status: normal Respiratory status: normal Airway patency: baseline Mental status: baseline Post-Op hydration status: normal Vital Signs: Last Vital Signs Temp 97.6 F 02/28/23 09:40 Pulse 83 02/28/23 09:40 Resp 16 02/28/23 09:40 BP 142/75 H 02/28/23 09:40 Pulse Ox 98 02/28/23 09:40 O2 Del Method Room Air 02/28/23 09:23 O2 Flow Rate 2 02/27/23 17:44 Pain Score (VAS): 0 I/O: Intake & Output 02/27/23 02/28/23 02/28/23 23:59 07:59 15:59 Intake Total 990 700 360 Balance 990 700 360 Laboratory Tests 02/28/23 05:26 02/28/23 05:26 02/27/23 02/28/23 02/28/23 10:56 05:26 05:26 WBC 12.3 H RBC 3.97 L Hgb 12.3 L Hct 36.0 L MCV 90.7 MCH 31.0 MCHC 34.2 RDW 13.4 Plt Count 213 MPV 10.3 Immature Gran % (Auto) 1.0 H Neut % (Auto) 87.1 H Lymph % (Auto) 4.6 L [place] % (Auto) 7.2 Eos % (Auto) 0.0 Baso % (Auto) 0.1 L Lymph # (Auto) 0.57 L [place] # (Auto) 0.9 H Eos # (Auto) 0.0 Baso # (Auto) 0.0 Abs Immat Gran (auto) 0.12 H Absolute Neuts (auto) 10.7 H Absolute Nucleated RBC 0.0 Nucleated RBC % 0.0 Sodium 135 L Potassium 4.3 Chloride 101 Carbon Dioxide 26 Anion Gap 8 BUN 18 Creatinine 1.00 Estim Creat Clear Calc 62 Estimated GFR > 60 Glucose 258 H Calcium 8.7 Magnesium 1.9 Blood Type B Positive Antibody Screen Negative Post-procedural complaints: nausea Patient Feedback: Patient satisfied with anesthetic care.
[2023-02-28 14:00] VITALS: BP 126/70; PULSE 79; RESP 14; TEMP 36.6; O2SAT 96
== END 2023-02-28 15:45 | disposition home or self-care (01) ==
LOC: ANHSURGERY 09:58 → ANH3MED 16:47
PROVIDERS: PCP Family Medicine; Visit Provider Orthopaedic Surgery
PROC: (CPT 27447; principal; 2023-02-27 12:00)
DX: M17.0 Bilateral primary osteoarthritis of knee (principal); R03.0 Elevated blood-pressure reading, without diagnosis of hypertension; N40.0 Benign prostatic hyperplasia without lower urinary tract symptoms; Z87.891 Personal history of nicotine dependence
CPT/HCPCS: 27447; 20610; 36415; 73560; 80048; 80307; 82040; 83036; 83735; 85025; 86850; 86900; 86901; 87081; 93005; 97110; 97116; 97162; 97165; A9270; C1713; C1776; J0171; J0690; J1040; J1100; J1170; J1885; J2270; J2405; J2704; J2795; J3010; J3370; J7120